=== PATIENT | female | born 1995 | race Hispanic/Latino ===

== ENCOUNTER 2020-08-11 11:44 | Emergency (ER) | payer SELFPAY ==
[2020-08-11] VITALS (20 sets, daily range): BP systolic 128–160; BP diastolic 67–105; PULSE 70–83; RESP 16–22; TEMP 36.2–36.7; O2SAT 95–100
--- NOTE | ~2020-08-11 | US_ITS ---
EXAMINATION: US venous doppler [facility] DATE: 08/11/2020 15:32 INDICATION: Lower limb swelling. TECHNIQUE: Grayscale ultrasound images without and with compression and Doppler ultrasound images of the bilateral lower extremity veins were obtained. COMPARISON: None. FINDINGS: The visualized portions of right common femoral vein, profunda (deep) femoral vein, femoral vein, pop liteal vein, peroneal veins, posterior tibial veins, and greater saphenous vein outflow are patent. The visualized portions of left common femoral vein, profunda femoral vein, femoral vein, popliteal v ein, peroneal veins, posterior tibial veins, and greater saphenous vein outflow are patent. IMPRESSION: 1. No deep venous thrombosis. Reviewed, dictated and finalized at location B.
--- NOTE | ~2020-08-11 | CT_ITS ---
EXAMINATION: CTA chest PE protocol DATE: 08/11/2020 15:50 INDICATION: Shortness of breath. TECHNIQUE: Computed tomography angiography (CTA) of the chest was performed with 100 mL Omnipaque-350 intravenous contrast timed to evaluate the pulmonary arteries. Coronal maximum intensity projection 3D-reconstructions were created by the technologist. Automated exposure control and iterative reconst ruction technique were employed. The dose-length product was 617.25 mGy-cm. COMPARISON: None. FINDINGS: There is mild atelectasis in left lower lobe. No pleural effusion. The heart size is normal . No pericardial effusion. There is no pulmonary embolus. There is star artifact involving some of th e pulmonary arteries. There is diffuse hepatic steatosis. The bones are unremarkable. IMPRESSION: 1. No pulmonary embolus. 2. Diffuse hepatic steatosis. Reviewed, dictated and finalized at location B.
--- NOTE | ~2020-08-11 | XR_ITS ---
EXAMINATION: XR chest 2V DATE: 08/11/2020 13:48 INDICATION: Generalized swelling and edema. TECHNIQUE: Frontal and lateral views of the chest were obtained. COMPARISON: None. FINDINGS: The chest demonstrates clear lungs without pneumonia, pleural effusion, or pneumothorax. Th e heart size is normal. IMPRESSION: 1. No acute cardiopulmonary disease. Reviewed, dictated and finalized at location B.
--- NOTE | 2020-08-11 12:57 | ECG_ITS ---
Measurements Intervals [place] Rate: 72 P: 5 OR: 148 QRS: -10 QRSD: 98 T: 1 QT: 368 QTc: 405 Interpretive Statements SINUS RHYTHM BORDERLINE T WAVE ABNORMALITY- ANT/INF LEADS BASELINE ARTIFACT- I, II, III, AVR, AVL, AVF BORDERLINE ECG Electronically Signed On 08-11-2020 13:35:42 CDT by Wilton Acevedo D.O.
[2020-08-11 13:14] LABS: Alanine Aminotransferase 38 U/L (4-35); Albumin Level 4.7 g/dL (3.5-5.1); Alkaline Phosphatase 101 U/L (38-126); Anion Gap 7 mmol/L (8-16); Aspartate Amino Transferase 37 U/L (14-36); Bilirubin,Total 0.4 mg/dL (0.2-1.3); Blood Urea Nitrogen 9 mg/dL (7-17); Calcium 9.5 mg/dL (8.4-10.2); Carbon Dioxide 29 mmol/L (22-30); Chloride 103 mmol/L (98-107); Estimated CRCL calculation 120 ml/min; Estimated Glomerular Filt Rate > 60; Glucose 106 mg/dL (65-105); Potassium 4.1 mmol/L (3.4-5.0); Sodium 139 mmol/L (137-145)
[2020-08-11 13:22] LABS: NT Pro B Type Natriuretic Pept 22 PG/ML (5-100)
[2020-08-11 13:26] LABS: Basophils Absolute Auto 0.1 K/mm3 (0.0-0.1); Basophils Percent Auto 0.8 % (0.2-1.2); Eosinophils Absolute Auto 0.2 K/mm3 (0-0.3); Eosinophils Percent Auto 1.3 % (0-4.4); Hematocrit 44.1 % (37.0-47.0); Hemoglobin 14.8 g/dL (12.0-15.0); Immature Granulocyte Absolute 0.06 K/mm3 (0.00-0.031); Immature Granulocyte Percent A 0.5 % (0-0.5); Lymphocytes Absolute Auto 3.65 K/mm3 (0.9-3.2); Lymphocytes Percent Auto 32.6 % (18.3-44.2); Mean Corpuscular HGB Conc 33.6 g/dl (32-36); Mean Corpuscular Hemoglobin 30.3 pg (26-34); Mean Corpuscular Volume 90.2 fl (80-100); Mean Platelet Volume 12.4 fl (7.4-10.4); Monocytes Absolute Auto 0.6 K/mm3 (0.1-0.6); Monocytes Percent Auto 5.5 % (2.6-8.5); Neutrophils Absolute Auto 6.6 K/mm3 (1.3-6.7); Neutrophils Percent Auto 59.3 % (45.5-73.1); Platelet Count Result 233 k/mm3 (150-375); Red Blood Count 4.89 M/mm3 (4.2-5.4); White Blood Count 11.2 K/mm3 (4.5-10.0)
--- NOTE | 2020-08-11 13:37 | ED.GENADULT ---
HPI - General Adult General Chief complaint: Unspecified Stated complaint: hand and feet swelling x 3 weeks Time Seen by Provider: 08/11/20 12:45 Source: patient History of Present Illness HPI narrative: Patient is a 25 y/o female complaining severe generalized swelling for 3 days. She states that she took OTC Diurex water pills which help with her swelling, but the swelling usually comes back. She has some SOB with exertion. She has no chest pain. Related Data Home Medications Medication Instructions Recorded Confirmed No Home Medications 08/11/20 08/11/20 Allergies Allergy/AdvReac Type Severity Reaction Status Date / Time No Known Allergies Allergy Verified 08/11/20 12:42 Review of Systems Constitutional: Constitutional: Denies chills, Denies fever(s), Denies headache(s) and Denies weakness Eyes: Eyes: Denies blurry vision ENT: Denies headache(s) and Denies neck pain Cardiovascular: Cardiovascular: Denies chest pain and Denies dyspnea Respiratory: Respiratory: Denies cough and Reports dyspnea Gastrointestinal: Gastrointestinal: Denies abdominal pain, Denies diarrhea, Denies nausea and Denies vomiting Genitourinary: Genitourinary: Denies hematuria and Denies dysuria Musculoskeletal: Musculoskeletal: Denies back pain, Denies neck pain and Reports other (generalized swelling) Neurologic: Denies headache(s) and Denies weakness Exam Const: General: no acute distress and well developed Orientation/consciousness: oriented to person, oriented to place, oriented to time and patient oriented x3 HENMT: Head: normocephalic Ears: external ears normal General nose exam: Normal external nose present Eyes: General: appearance normal, both eyes and all related structures Conjunctivae: conjunctivae normal Neck: Neck: normal visual inspection and full ROM Chest: Chest palpation & inspection: normal inspection of the chest and no tenderness Resp: Effort & Inspection: normal respiratory effort Auscultation: clear to auscultation bilaterally Cardio: Rate: regular rate Rhythm: regular rhythm GI: GI Palp: No abdominal tenderness and Yes Soft to palpation Skin: General skin exam: normal color and turgor normal Neuro: General: oriented to person, oriented to place, oriented to time and patient oriented x3 Cognition (Neuro): normal cognition Extrem: General: normal to inspection, full ROM and no pedal edema Psych: Appearance: grossly normal Mental Status: mental status grossly normal Affect: normal affect Course Vital Signs Vital signs: Vital Signs Temperature 36.2 C L 08/11/20 11:47 Pulse Rate 73 08/11/20 11:47 Respiratory Rate 16 08/11/20 11:47 Blood Pressure 141/95 H 08/11/20 11:47 Pulse Oximetry 98 08/11/20 11:47 Temperature 36.7 C 08/11/20 12:39 Pulse Rate 78 08/11/20 16:34 Respiratory Rate 18 08/11/20 16:34 Blood Pressure 132/78 08/11/20 16:34 Pulse Oximetry 99 08/11/20 16:34 Medical Decision Making Vital Signs Vital Signs: Vital Signs Temperature 36.2 C L 08/11/20 11:47 Pulse Rate 73 08/11/20 11:47 Respiratory Rate 16 08/11/20 11:47 Blood Pressure 141/95 H 08/11/20 11:47 Pulse Oximetry 98 08/11/20 11:47 Temperature 36.7 C 08/11/20 12:39 Pulse Rate 78 08/11/20 16:34 Respiratory Rate 18 08/11/20 16:34 Blood Pressure 132/78 08/11/20 16:34 Pulse Oximetry 99 08/11/20 16:34 Lab Data Result diagrams: 08/11/20 12:52 08/11/20 12:52 Labs: Lab Results 08/11/20 08/11/20 08/11/20 Range/Units 12:52 12:52 12:52 WBC 11.2 H (4.5-10.0) K/mm3 RBC 4.89 (4.2-5.4) M/mm3 Hgb 14.8 (12.0-15.0) g/dL Hct 44.1 (37.0-47.0) % MCV 90.2 (80-100) fl MCH 30.3 (26-34) pg MCHC 33.6 (32-36) g/dl RDW 12.0 (11.5-14.5) % Plt Count 233 (150-375) k/mm3 MPV 12.4 H (7.4-10.4) fl Immature Gran % (Auto) 0.5 (0-0.5) % Neut % (Auto) 59.3 (45.5-73.1) % Lymph
[2020-08-11 13:42] LABS: Atypical Lymphocytes Present; Large Platelets Present; Platelet Estimate Adequate (Adequate)
--- NOTE | 2020-08-11 13:48 | PC.NURSE ---
called lab, Ann, added on D Vbm[facility] [id number]
[2020-08-11 14:06] LABS: D Dimer 3.13 ug/mL (<0.48)
--- NOTE | 2020-08-11 14:53 | PC.NURSE ---
Pt ambulating to bathroom at this time to provide urine sample
[2020-08-11 15:10] LABS: Add Urine Microscopic? YES; Appearance Urine Cloudy (Clear); Bacteria Urine 1+ /hpf; Bilirubin Urine Negative (Negative); Blood Urine Negative (Negative); Color Urine Yellow (Yellow); Glucose Urine UA Negative (Negative); Ketones Urine Negative (Negative); Leukocyte Esterase Ur 3+ LEU/UL (Negative); Mucus Urine Rare /lpf; Nitrate Urine Negative (Negative); Protein Urine Negative (Negative); RBC Urine 0-2 /hpf (0-2); Specific Grav Ur 1.017 (1.001-1.035); Squamous Epithelial Cell Urine Many /hpf (Few); Urobilinogen Urine Negative mg/dL (<2.0); WBC Urine 16-20 /hpf
== END 2020-08-11 16:36 | disposition home or self-care (01) ==
PROVIDERS: Emergency Provider Emergency Medicine
DX: R60.9 Edema, unspecified (principal)
CPT/HCPCS: 36415; 71046; 71275; 80053; 81001; 81025; 83880; 84443; 85025; 85380; 87086; 87088; 93005; 93970; 99284; Q9967

== ENCOUNTER 2020-08-11 19:01 | Emergency (ER) | payer SELFPAY ==
[2020-08-11 19:09] VITALS: BP 140/99; PULSE 110; RESP 20; TEMP 36.8; O2SAT 99
[2020-08-11] MEDS: diphenhydrAMINE HCl INJ 50 MG/ML VIAL 25 MG IV PUSH (19:27)
[2020-08-11] MEDS: FAMOTIDINE 20 MG/2 ML VIAL IV PUSH (19:28)
[2020-08-11] MEDS: methylPREDNISolone SOD SUCC 125 MG VIAL IV PUSH (19:30)
--- NOTE | 2020-08-11 20:11 | ED.GENADULT ---
HPI - General Adult General Chief complaint: Allergic Reaction Stated complaint: hand, leg and lip swelling 2nd visit/sob Time Seen by Provider: 08/11/20 19:10 Source: patient History of Present Illness HPI narrative: Patient is a 25 y/o female complaining moderate itch and hives all over. She was seen here earlier, had labs, US and CT for evaluation of generalized swelling. She states that the itch and hives developed after her discharge. She has some SOB, although that was present prior to her initially visit today. Related Data Allergies Allergy/AdvReac Type Severity Reaction Status Date / Time iohexol Allergy Swelling Verified 08/11/20 19:42 [From contrast - CT, X-RAY] of Lip/Tongue/Throat Review of Systems Constitutional: Constitutional: Denies chills, Denies fever(s), Denies headache(s) and Denies weakness Eyes: Eyes: Denies blurry vision ENT: Denies headache(s) and Denies neck pain Cardiovascular: Cardiovascular: Denies chest pain and Reports dyspnea Respiratory: Respiratory: Denies cough and Reports dyspnea Gastrointestinal: Gastrointestinal: Denies abdominal pain, Denies diarrhea, Denies nausea and Denies vomiting Genitourinary: Genitourinary: Denies hematuria and Denies dysuria Musculoskeletal: Musculoskeletal: Denies back pain and Denies neck pain Integumentary/Breasts: Skin/Breast: Reports as per HPI, Reports pruritus and Reports lesions (hives) Neurologic: Denies headache(s) and Denies weakness Exam Const: General: no acute distress and well developed Orientation/consciousness: oriented to person, oriented to place, oriented to time and patient oriented x3 HENMT: Head: normocephalic Ears: external ears normal General nose exam: Normal external nose present Eyes: General: appearance normal, both eyes and all related structures Conjunctivae: conjunctivae normal Neck: Neck: normal visual inspection and full ROM Chest: Chest palpation & inspection: normal inspection of the chest and no tenderness Resp: Effort & Inspection: normal respiratory effort Auscultation: clear to auscultation bilaterally Cardio: Rate: tachycardic Rhythm: regular rhythm GI: GI Palp: No abdominal tenderness and Yes Soft to palpation Skin: General skin exam: normal color, turgor normal and erythema (multiple raised erythema consistent with urticaria) Neuro: General: oriented to person, oriented to place, oriented to time and patient oriented x3 Cognition (Neuro): normal cognition Extrem: General: normal to inspection, full ROM and no pedal edema Psych: Appearance: grossly normal Mental Status: mental status grossly normal Affect: normal affect Course Reevaluation(s) Reevaluation #1: Rechecked. Patient feels better. Her hives have resolved completely. Date: 08/11/20 Time: 22:36 Vital Signs Vital signs: Vital Signs Temperature 36.8 C 08/11/20 19:09 Pulse Rate 110 H 08/11/20 19:09 Respiratory Rate 20 08/11/20 19:09 Blood Pressure 140/99 H 08/11/20 19:09 Pulse Oximetry 99 08/11/20 19:09 Temperature 36.8 C 08/11/20 19:09 Pulse Rate 98 08/11/20 22:49 Respiratory Rate 16 08/11/20 22:49 Blood Pressure 132/88 08/11/20 22:49 Pulse Oximetry 98 08/11/20 22:49 Medical Decision Making Vital Signs Vital Signs: Vital Signs Temperature 36.8 C 08/11/20 19:09 Pulse Rate 110 H 08/11/20 19:09 Respiratory Rate 20 08/11/20 19:09 Blood Pressure 140/99 H 08/11/20 19:09 Pulse Oximetry 99 08/11/20 19:09 Temperature 36.8 C 08/11/20 19:09 Pulse Rate 98 08/11/20 22:49 Respiratory Rate 16 08/11/20 22:49 Blood Pressure 132/88 08/11/20 22:49 Pulse Oximetry 98 08/11/20 22:49 Discharge Plan Discharge Clinical Impression: Urticaria Patient Disposition: Home, Self-Care Condition: Stable Instructions: Urticaria (ED) Prescriptions: New methylprednisolone [Medrol ([place])] 4 mg tablets,dose pack See Rx Instructions .ROUTE .COMPLEX Q
[2020-08-11 22:49] VITALS: BP 132/88; PULSE 98; RESP 16; O2SAT 98
== END 2020-08-11 22:49 | disposition home or self-care (01) ==
PROVIDERS: Emergency Provider Emergency Medicine; PCP Physician Assistant
DX: L50.9 Urticaria, unspecified (principal)
CPT/HCPCS: 96374; 96375; 99284; J1200; J2930

== ENCOUNTER 2021-03-11 11:36 | Outpatient (CLI) | payer SELFPAY ==
[2021-03-11 12:02] LABS: Basophils Absolute Auto 0.1 K/mm3 (0.0-0.1); Eosinophils Absolute Auto 0.4 K/mm3 (0-0.3); Eosinophils Percent Auto 4.6 % (0-4.4); Hematocrit 40.3 % (37.0-47.0); Hemoglobin 13.5 g/dL (12.0-15.0); Immature Granulocyte Absolute 0.04 K/mm3 (0.00-0.031); Immature Granulocyte Percent A 0.4 % (0-0.5); Immature Reticulocyte Fraction 8.3 % (3.0-15.9); Lymphocytes Absolute Auto 1.63 K/mm3 (0.9-3.2); Lymphocytes Percent Auto 17.8 % (18.3-44.2); Mean Corpuscular HGB Conc 33.5 g/dl (32-36); Mean Corpuscular Hemoglobin 30.4 pg (26-34); Mean Corpuscular Volume 90.8 fl (80-100); Mean Platelet Volume 11.9 fl (7.4-10.4); Monocytes Absolute Auto 0.9 K/mm3 (0.1-0.6); Monocytes Percent Auto 9.3 % (2.6-8.5); Neutrophils Absolute Auto 6.1 K/mm3 (1.3-6.7); Neutrophils Percent Auto 66.9 % (45.5-73.1); Platelet Count Result 221 k/mm3 (150-375); Red Blood Count 4.44 M/mm3 (4.2-5.4); Reticulocyte Hemoglobin Conten 35.7 pg (28.2-35.7); Reticulocyte Percent 1.62 % (0.7-4.3); Reticulocytes Absolute 0.07 B/L (32.2-175.7); White Blood Count 9.2 K/mm3 (4.5-10.0)
[2021-03-11 17:35] LABS: Iron 44 ug/dL (37-170)
[2021-03-11 17:49] LABS: Percent Iron Saturation 14 % (20-50)
[2021-03-11 18:59] LABS: Alanine Aminotransferase 46 U/L (4-35); Albumin Level 4.8 g/dL (3.5-5.1); Alkaline Phosphatase 103 U/L (38-126); Anion Gap 10 mmol/L (8-16); Aspartate Amino Transferase 52 U/L (14-36); Bilirubin,Total 0.4 mg/dL (0.2-1.3); Blood Urea Nitrogen 13 mg/dL (7-17); Calcium 9.8 mg/dL (8.4-10.2); Carbon Dioxide 26 mmol/L (22-30); Chloride 102 mmol/L (98-107); Estimated Glomerular Filt Rate > 60; Glucose 111 mg/dL (65-110); Lactate Dehydrogenase 366 U/L (313-618); Sodium 138 mmol/L (137-145)
[2021-03-11 20:14] LABS: Folic Acid > 20.0 ng/mL (2.76->20)
[2021-03-13 20:22] LABS: Haptoglobin 196 mg/dL (43-212)
== END 2021-03-11 11:37 | disposition home or self-care (01) ==
LOC: ANHLAB 11:37
PROVIDERS: PCP Physician Assistant; Visit Provider Internal Medicine Hematology & Oncology
DX: D64.9 Anemia, unspecified (principal)
CPT/HCPCS: 36415; 80053; 82607; 82728; 82746; 83010; 83540; 83550; 83615; 85025; 85046; 86880

== ENCOUNTER 2022-01-20 20:37 | Emergency (ER) | payer OTHER, SELFPAY ==
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
[2022-01-20 20:47] VITALS: BP 131/84; PULSE 71; RESP 16; TEMP 36.1; O2SAT 99
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
[2022-01-20] MEDS: ACETAMINOPHEN 500 MG TABLET 1000 MG PO (21:50)
[2022-01-20 22:36] VITALS: BP 128/76; PULSE 88; RESP 16; TEMP 36.7; O2SAT 100
== END 2022-01-20 22:41 | disposition home or self-care (01) ==
LOC: ANHED 22:20
PROVIDERS: Emergency Provider Emergency Medicine; PCP Obstetrics & Gynecology
DX: S16.1XXA Strain of muscle, fascia and tendon at neck level, initial encounter (principal); V89.2XXA Person injured in unspecified motor-vehicle accident, traffic, initial encounter
CPT/HCPCS: 70450; 72125; 99284; A9270